=== PATIENT | female | born 1995 | race Caucasian/White ===

== ENCOUNTER 2017-10-22 14:28 | Emergency (ER) | payer OTHER ==
[2017-10-22] MEDS ORDERED: Pepcid 20 MG VIAL IV ONE ×2 (15:00→15:12)
[2017-10-22] MEDS ORDERED: BENADRYL 50 MG/ML IV ONE (15:00)
[2017-10-22] MEDS ORDERED: Hydromorphone 1 mg/ml Ampule IV ONE (15:00)
[2017-10-22] MEDS ORDERED: Lactated Ringers 1,000 ML IV ONE ×2 (15:00→15:13)
--- NOTE | 2017-10-22 15:10 | ERPHSYRPT ---
- History of Present Illness Time Seen by Provider: 10/22/17 14:53 Historian: patient Patient Subjective Stated Complaint: upper epigastric pain since 1030 today. vomited times two today Triage Nursing Assessment: ambulated to room per self. holding mid abd. skin w /d, color normal, resp easy. tearful at times. abd soft, tender. 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 She has epigastric abd pain, severe, sharp, since 10:30 AM today. She ate [employer] pizza at 8:30AM. Nausea without vomiting. No fever. Sexually active. Normal LMP. No vaginal discharge or bleeding. No hx of this pain in past. No prior abdominal surgeries. Timing/Duration: today Abdominal Pain Onset Location: epigastric Severity of Pain-Max: severe Severity of Pain-Current: severe Allergies/Adverse Reactions: No Known Drug Allergies Allergy (Unverified 10/22/17 15:03) Hx Tetanus, Diphtheria Vaccination/Date Given: No Hx Influenza Vaccination/Date Given: Yes Hx Pneumococcal Vaccination/Date Given: No - Review of Systems Constitutional: Malaise, No Fever, No Chills Eyes: No Symptoms Ears, Nose, & Throat: No Symptoms Respiratory: No Cough Cardiac: No Chest Pain Abdominal/Gastrointestinal: Abdominal Pain, Nausea, No Vomiting, No Diarrhea Genitourinary Symptoms: No Dysuria, No Vaginal Bleeding, No Vaginal Discharge Musculoskeletal: No Back Pain Skin: No Rash All Other Systems: Reviewed and Negative - Past Medical History Pertinent Past Medical History: No - Past Surgical History Past Surgical History: No - Social History Smoking Status: Current every day smoker How long have you smoked: 5 Exposure to second hand smoke: Yes Drug Use: marijuana Patient Lives Alone: No - Female History Hx Now: No - Nursing Vital Signs Nursing Vital Signs: Initial Vital Signs Temperature 97.4 F 10/22/17 14:35 Pulse Rate 70 10/22/17 14:35 Respiratory Rate 18 10/22/17 14:35 Blood Pressure 117/74 10/22/17 14:35 O2 Sat by Pulse Oximetry 100 10/22/17 14:35 Pain Scale Pain Intensity 0 - Physical Exam General Appearance: alert, obese, other (tearful) Eye Exam: PERRL/EOMI, No scleral icterus Ears, Nose, Throat Exam: normal ENT inspection, moist mucous membranes Neck Exam: normal inspection, non-tender, supple Respiratory Exam: normal breath sounds, lungs clear Cardiovascular Exam: regular rate/rhythm Gastrointestinal/Abdomen Exam: soft, tenderness (RUQ with guarding, + ybarra's sign, mild epigastric tenderness, no mass) Extremity Exam: normal inspection, normal range of motion Neurologic Exam: alert, oriented x 3, cooperative, sensation nml, No motor deficits Skin Exam: warm, dry, No rash SpO2 Interpretation: normal SpO2: 100 Oxygen Delivery: Room Air - Course Nursing assessment & vital signs reviewed: Yes - Radiology Exams cxr X-ray Interpretation: Interpreted by me (fluid in fissure, RML pneumonia) - CT Exams abd/pelvis CT Interpretation: Tele-radiologist Report (small to moderate right pleural effusion, 10 mm right lung nodule, single stone in gallbladder.) Ordered Tests: Active Orders 24 hr Category Date Time Status Clean Catch Urine Specimen STAT Care 10/22/17 15:00 Active IV Insertion STAT Care 10/22/17 15:00 Active NPO (ED) STAT Care 10/22/17 15:00 Active ABDOMEN AND PELVIS W CONTRAST [CT] Stat Exams 10/22/17 15:53 Taken CHEST 2 VIEWS (PA AND LAT) Stat Exams 10/22/17 17:42 Taken CBC W DIFF Stat Lab 10/22/17 15:15 Completed CMP Stat Lab 10/22/17 15:15 Completed CULTURE,URINE Stat Lab 10/22/17 15:15 Received HCG QUALITATIVE,SERUM Stat Lab 10/22/17 15:15 Completed LIPASE Stat Lab 10/22/17 15:15 Completed Lactic Acid Stat Lab 10/22/17 15:00 Completed UA W/ MICROSCOPIC Stat Lab 10/22/17 15:15 Completed Medication Summary Discontinued Medications Generic Name Dose Route Start Last Admin Trade Name Freq PRN Reason Stop Dose Admin Hydrocodone Bitart/Acetaminophen 2 tab 10/22/17 17:52 [place] 5/325 Mg PO 10/22/17 17:53 SENT HOME W/ PATIENT ONE Diphenhydramine HCl 25 mg 10/22/17 15:00 10/22/17 15:15 Benadryl 50 Mg/Ml IV 10/22/17 15:01 25 mg STAT ONE Administration Diphenhydramine HCl Confirm 10/22/17 15:12 Benadryl 50 Mg/Ml Administered 10/22/17 15:13 Dose 50 mg .ROUTE .STK-MED ONE Famotidine 20 mg 10/22/17 15:00 10/22/17 15:17 Pepcid 20 Mg Vial IV 10/22/17 15:01 20 mg STAT ONE Administration Famotidine Confirm 10/22/17 15:12 Pepcid 20 Mg Vial Administered 10/22/17 15:13 Dose 20 mg IV .STK-MED ONE Hydromorphone HCl 1 mg 10/22/17 15:00 10/22/17 15:16 Hydromorphone 1 Mg/Ml Ampule IV 10/22/17 15:01 1 mg STAT ONE Administration Hydromorphone HCl Confirm 10/22/17 15:15 Dilaudid 2 Mg Injection Administered 10/22/17 15:16 Dose 2 mg .ROUTE .STK-MED ONE Lactated Ringer's 1,000 mls @ 999 mls/hr 10/22/17 15:00 10/22/17 15:17 Lactated Ringers IV 10/22/17 16:00 999 mls/hr .Q1H1M ONE Administration Lactated Ringer's Confirm 10/22/17 15:13 Lactated Ringers Administered 10/22/17 15:14 Dose 1,000 mls @ ud IV .STK-MED ONE Ampicillin Sodium/Sulbactam Sodium 3 gm in 100 mls @ 200 mls/hr 10/22/17 17: 46 Unasyn 3gm / Nacl 100ml IV 10/22/17 18:15 STAT STA Lab/Rad Data: Laboratory Result Diagrams 10/22/17 15:15 10/22/17 15:15 Laboratory Results 10/22/17 10/22/17 10/22/17 Range/Units 15:15 15:15 15:15 WBC 10.8 H (4.0-10.5) K/mm3 RBC 4.79 (4.1-5.4) M/mm3 Hgb 14.2 (12.0-16.0) gm/dl Hct 43.0 (35-47) % MCV 89.8 (78-100) fl MCH 29.6 (26-32) pg MCHC 33.0 (32-36) g/dl RDW 13.4 (11.5-14.0) % Plt Count 276 (150-450) K/mm3 MPV 11.1 H (6-9.5) fl Gran % 75.8 H (36.0-66.0) % Lymphocytes % 15.4 L (24.0-44.0) % Monocytes % 5.7 (0.0-12.0) % Eosinophils % 2.6 (0.00-5.0) % Basophils % 0.5 (0.0-0.4) % Basophils # 0.05 (0-0.4) Sodium 141 (137-145) mmol/L Potassium 4.7 (3.5-5.1) mmol/L Chloride 106 (98-107) mEq/L Carbon Dioxide 26 (22-30) mmol/L Anion Gap 14.1 (5-15) MEQ/L BUN 11 (7-17) mg/dl Creatinine 0.65 (0.52-1.04) mg/dl Estimated GFR > 60 ML/MIN Glucose 99 (74-106) mg/dL Lactic Acid (0.4-2.0) Calcium 9.3 (8.4-10.2) mg/dL Total Bilirubin < 0.10 L (0.2-1.3) mg/d? AST 15 (14-36) U/L ALT 16 (0-35) U/L Alkaline Phosphatase 60 (38-126) U/L Serum Total Protein 7.0 (6.3-8.2) mg/dl Albumin 3.8 (3.5-5.0) g/dl Lipase 57 (23-300) U/L Serum , Qual NEGATIVE (Negative) Ur Collection Type Urine Color (YELLOW) Urine Appearance (CLEAR) Urine pH (5-6) Ur Specific [place] (1.005-1.025) Urine Protein (Negative) Urine Ketones (NEGATIVE) Urine Blood (0-5) Maxi/ul Urine Nitrite (NEGATIVE) Urine Bilirubin (NEGATIVE) Urine Urobilinogen (0-1) mg/dL Ur Leukocyte Esterase (NEGATIVE) Urine Microscopic WBC (0-5) /HPF Ur Epithelial Cells (FEW) /HPF Urine Bacteria (NEGATIVE) /HPF Urine Culture Reflexed (NO) Urine Glucose (NEGATIVE) mg/dL Specimen Received 10/22/17 10/22/17 Range/Units 15:15 15:00 WBC (4.0-10.5) K/mm3 RBC (4.1-5.4) M/mm3 Hgb (12.0-16.0) gm/dl Hct (35-47) % MCV (78-100) fl MCH (26-32) pg MCHC (32-36) g/dl RDW (11.5-14.0) % Plt Count (150-450) K/mm3 MPV (6-9.5) fl Gran % (36.0-66.0) % Lymphocytes % (24.0-44.0) % Monocytes % (0.0-12.0) % Eosinophils % (0.00-5.0) % Basophils % (0.0-0.4) % Basophils # (0-0.4) Sodium (137-145) mmol/L Potassium (3.5-5.1) mmol/L Chloride (98-107) mEq/L Carbon Dioxide (22-30) mmol/L Anion Gap (5-15) MEQ/L BUN (7-17) mg/dl Creatinine (0.52-1.04) mg/dl Estimated GFR ML/MIN Glucose (74-106) mg/dL Lactic Acid 1.5 (0.4-2.0) Calcium (8.4-10.2) mg/dL Total Bilirubin (0.2-1.3) mg/d? AST (14-36) U/L ALT (0-35) U/L Alkaline Phosphatase (38-126) U/L Serum Total Protein (6.3-8.2) mg/dl Albumin (3.5-5.0) g/dl Lipase (23-300) U/L Serum , Qual (Negative) Ur Collection Type VOID Urine Color YELLOW (YELLOW) Urine Appearance SLIGHTLY HAZY (CLEAR) Urine pH 5.0 (5-6) Ur Specific [place] 1.010 (1.005-1.025) Urine Protein NEGATIVE (Negative) Urine Ketones NEGATIVE (NEGATIVE) Urine Blood 5-10 (0-5) Maxi/ul Urine Nitrite NEGATIVE (NEGATIVE) Urine Bilirubin NEGATIVE (NEGATIVE) Urine Urobilinogen NORMAL (0-1) mg/dL Ur Leukocyte Esterase 2+ (NEGATIVE) Urine Microscopic WBC 10-15 (0-5) /HPF Ur Epithelial Cells FEW (FEW) /HPF Urine Bacteria MODERATE (NEGATIVE) /HPF Urine Culture Reflexed YES (NO) Urine Glucose NEGATIVE (NEGATIVE) mg/dL Specimen Received 10/22/17 1510 - Progress Progress Note: 10/22/17 15:10 CT abd ordered for abd pain as no sonography available. 10/22/17 17:46 Pt feels better after meds. polishing machine tender in RUQ. LAbs reassuring. ?etiology of pleural effusion. Will treat with unasyn. She prefers to go home. May be able to see surgeon david. Advised effusion and gallstone need to be evaluate. Physician referral list also given. Counseled pt/family regarding: lab results, diagnosis, need for follow-up, rad results - Departure Time of Disposition: 18:23 Departure Disposition: Home Clinical Impression: Biliary colic, Gallstone, Pleural effusion, right, RML pneumonia Condition: Fair Critical Care Time: No Referrals: DOCTOR,NO FAMILY [NON-STAFF PHY W/O PRIVILEGES] - CAM CHESTER [COURTESY STAFF] - Instructions: Pleural Effusion (DC), Gallstones (DC) Additional Instructions: Rx augmentin. Rx norco- no driving. Rx zofran. [place] diet. No driving tonite and stay with family. Call Dr Chester office in am to get appt tomorrow. Follow up this week with a family doctor. Rx zithromax. Prescriptions: Hydrocodone Bit/Acetaminophen [[place] 5-325 Tablet] 1 each PO Q6H PRN PRN #10 tablet MDD 4 PRN Reason: Pain Ondansetron ODT 4 MG [Zofran Odt 4 mg] 1 tab PO Q6H PRN PRN #10 tab.rapdis PRN Reason: Nausea/Vomiting Amox Tr/Potass Clav. 875 mg [Augmentin 875-125 Tablet] 875 mg PO BID #14 tablet Azithromycin 250 mg [Zithromax 250 MG TABLET] 1 tab PO DAILY #4 tablet
[2017-10-22] MEDS ORDERED: BENADRYL 50 MG/ML ONE (15:12)
[2017-10-22] MEDS ORDERED: DILAUDID 2 MG INJECTION ONE (15:15)
[2017-10-22 15:21] LABS: BASOPHIL % 0.5 % (0.0-0.4); Basophil (Absolute #) 0.05 (0-0.4); Eosinophil % 2.6 % (0.00-5.0); Eosinophil (Absolute #) 0.28 (0-0.5); Granulocytes % 75.8 % (36.0-66.0); Hemoglobin 14.2 gm/dl (12.0-16.0); Lymphocyte (Absolute #) 1.67 (1.0-4.6); Lymphocytes % 15.4 % (24.0-44.0); Mean Cell Volume 89.8 fl (78-100); Mean Corpuscular Hemoglobin 29.6 pg (26-32); Mean Platelet Volume 11.1 fl (6-9.5); Monocyte (Absolute #) 0.62 (0.0-1.3); Monocytes % 5.7 % (0.0-12.0); Platelet Count 276 K/mm3 (150-450); Red Blood Count 4.79 M/mm3 (4.1-5.4); Red Cell Distribution Width 13.4 % (11.5-14.0); White Blood Count 10.8 K/mm3 (4.0-10.5)
[2017-10-22 15:23] LABS: Appearance SLIGHTLY HAZY (CLEAR); Bilirubin NEGATIVE (NEGATIVE); Glucose NEGATIVE (NEGATIVE); Ketones NEGATIVE (NEGATIVE); Leukocyte Esterase 2+ (NEGATIVE); Nitrite NEGATIVE (NEGATIVE); Protein,Urine Dip NEGATIVE (Negative); Urobilinogen NORMAL mg/dL (0-1)
[2017-10-22 15:45] LABS: Epithelial Cells FEW /HPF (FEW)
[2017-10-22 15:46] LABS: Bacteria MODERATE /HPF (NEGATIVE)
[2017-10-22 15:55] LABS: ALBUMIN 3.8 g/dl (3.5-5.0); ALKALINE PHOSPHATASE 60 U/L (38-126); ANION GAP 14.1 MEQ/L (5-15); BILIRUBIN,TOTAL < 0.10 mg/d? (0.2-1.3); BLOOD UREA NITROGEN 11 mg/dl (7-17); CHLORIDE 106 mEq/L (98-107); Calcium 9.3 mg/dL (8.4-10.2); Carbon Dioxide 26 mmol/L (22-30); Creatinine 1 0.65 mg/dl (0.52-1.04); Glucose 99 mg/dL (74-106); LIPASE 57 U/L (23-300); Potassium 4.7 mmol/L (3.5-5.1); SGOT/AST 15 U/L (14-36); SGPT/ALT 16 U/L (0-35); SODIUM 141 mmol/L (137-145)
[2017-10-22] MEDS ORDERED: Unasyn 3GM / NaCl 100ML 3 GM/100 ML IVPB IV STA (17:46)
[2017-10-22] MEDS ORDERED: NORCO 5/325 MG PO ONE (17:52)
[2017-10-22] MEDS ORDERED: Zithromax 250 MG TABLET PO ONE (18:24)
[2017-10-22] MEDS ORDERED: Unasyn 3GM / NaCl 100ML 3 GM/100 ML IVPB ONE (18:33)
[2017-10-22] MEDS ORDERED: Zithromax 250 MG TABLET ONE (18:35)
[2017-10-22] MEDS ORDERED: NORCO 5/325 MG ONE (19:16)
[2017-10-22 19:24] VITALS: BP 114/72; PULSE 62; O2SAT 96
--- NOTE | 2017-10-22 20:47 | XRAY ---
Indication: Abdominal pain. Nausea and vomiting. Multiple contiguous axial images obtained through the abdomen and pelvis using 80 cc Isovue-370 contrast only. Comparison: None Lung bases demonstrate mild/moderate right base effusion with compressive atelectasis. Lesser left lung base dependent atelectasis. Heart is not enlarged. Noncontrasted stomach and bowel loops appear nonobstructed. Normal appendix. No free fluid/air. 2.5 cm gallstone. Remaining liver, pancreas, spleen, adrenal glands, kidneys, ureters, bladder, uterus, and aorta appear normal in CT appearance and attenuation. No pathologic retroperitoneal lymphadenopathy. Osseous structures intact. Impression: 1. 2.5 cm gallstone. Ultrasound may yield further information if clinically warranted. 2. Mild/moderate right lung base effusion with atelectasis. Comment: Preliminary interpretation was made by C. No discrepancy. CTDI 23.68
--- NOTE | 2017-10-22 20:49 | XRAY ---
Indication: Pleural effusion. Comparison: None PA/lateral chest demonstrates bibasilar infiltrates/atelectasis right greater than left with small right effusion. Heart is not enlarged. Bony thorax intact.
== END 2017-10-22 19:36 | disposition home or self-care (01) ==
LOC: ED 14:28
DX: K80.70 Calculus of gallbladder and bile duct without cholecystitis without obstruction (principal); J90 Pleural effusion, not elsewhere classified; J18.9 Pneumonia, unspecified organism
CPT/HCPCS: 36000; 36415; 71046; 74177; 80053; 81000; 83605; 83690; 84703; 85025; 87086; 96360; 96365; 96374; 96375; 99284; J0295; J1170; J1200; A9270-GY

== ENCOUNTER 2020-03-16 20:09 | Emergency (ER) | payer OTHER ==
[2020-03-16] MEDS ORDERED: XYLOCAINE 1% HCL 20 ML MDV IJ ONE (20:10)
--- NOTE | 2020-03-16 20:33 | ERPHSYRPT ---
- History of Present Illness Time Seen by Provider: 03/16/20 20:33 Source: patient Exam Limitations: no limitations Physician History: Is a 24-year-old white female who presents with sore throat since yesterday afternoon. Her symptoms worsen. She has white spots on the back of her throat. Patient has no known exposure to anyone with positive strep throat. She has no shortness of breath. She has no cough symptoms. Timing/Duration: yesterday Cough Quality/Degree: no cough Possible Cause: no prior episodes Associated Symptoms: sore throat Allergies/Adverse Reactions: No Known Drug Allergies Allergy (Unverified 03/16/20 20:17) Travel Risk - International Travel Have you traveled outside of the country in past 3 weeks: No - Coronavirus Screening Are you exhibiting any of the following symptoms?: No Close contact with a COVID-19 positive Pt in past 14-21 Days: No - Review of Systems Constitutional: No Symptoms Eyes: No Symptoms Ears, Nose, & Throat: Throat Pain Respiratory: No Symptoms Cardiac: No Symptoms Abdominal/Gastrointestinal: No Symptoms Genitourinary Symptoms: No Symptoms Musculoskeletal: No Symptoms Skin: No Symptoms Neurological: No Symptoms Psychological: No Symptoms Endocrine: No Symptoms Hematologic/Lymphatic: No Symptoms Immunological/Allergic: No Symptoms All Other Systems: Reviewed and Negative - Past Medical History Pertinent Past Medical History: No Neurological History: No Pertinent History ENT History: No Pertinent History Cardiac History: No Pertinent History Respiratory History: No Pertinent History Endocrine Medical History: No Pertinent History Musculoskeletal History: No Pertinent History GI Medical History: No Pertinent History History: No Pertinent History Psycho-Social History: No Pertinent History Female Reproductive Disorders: No Pertinent History - Past Surgical History Past Surgical History: No Neuro Surgical History: No Pertinent History Respiratory: No Pertinent History Gastrointestinal: No Pertinent History Genitourinary: No Pertinent History Musculoskeletal: No Pertinent History Female Surgical History: No Pertinent History - Physical Exam General Appearance: no apparent distress, alert, anxiety Eye Exam: PERRL/EOMI, eyes nml inspection Ears, Nose, Throat Exam: pharyngeal erythema, tonsillar exudate Neck Exam: non-tender, supple, full range of motion, lymphadenopathy Respiratory Exam: normal breath sounds, lungs clear, No chest tenderness, No respiratory distress, No stridor Cardiovascular Exam: regular rate/rhythm, normal heart sounds, normal peripheral pulses Gastrointestinal/Abdomen Exam: soft, normal bowel sounds, No tenderness Pelvic Exam: not done Rectal Exam: not done Back Exam: normal inspection, normal range of motion, No CVA tenderness, No vertebral tenderness Extremity Exam: normal inspection, normal range of motion, pelvis stable Neurologic Exam: alert, oriented x 3, cooperative, reactor technician II-XII nml as tested, normal mood/affect, nml cerebellar function, nml station & gait, sensation nml Skin Exam: normal color, warm, dry Lymphatic Exam: adenopathy (Upper cervical) SpO2 Interpretation: normal O2 Delivery: Room Air - Course Nursing assessment & vital signs reviewed: Yes - Progress Progress: re-examined Air Movement: good Blood Culture(s) Obtained: No Antibiotics given: Yes Counseled pt/family regarding: diagnosis, need for follow-up - Departure Departure Disposition: Home Clinical Impression: Pharyngitis Condition: Stable Critical Care Time: No Referrals: DOCTOR,NO FAMILY [Primary Care Provider] - Additional Instructions: Drink plenty of fluids. Follow-up with your primary care physician for persistent symptoms. Take medication as prescribed. Prescriptions: Prednisone 10 mg [Deltasone 10 mg] 10 mg PO TID #12 tablet Hydrocodone Bit/Acetaminophen [Hydrocodone-Acetaminophen Soln] 10 ml PO Q6H #120 ml Azithromycin 250 mg [Zithromax 250 MG TABLET] 250 mg PO ZPACK #6 tablet
[2020-03-16] MEDS ORDERED: HYDROCODONE-ACETAMIN 2.5-108/5 ML SOLUTION ONE (20:42)
[2020-03-16] MEDS ORDERED: Rocephin 1000 MG INJ ONE (20:43)
[2020-03-16] MEDS ORDERED: solu-MEDROL 125 MG ONE (20:43)
[2020-03-16] MEDS: solu-MEDROL 125 MG IM ONE (20:45)
[2020-03-16] MEDS: Rocephin 1000 MG INJ IM ONE (20:46)
[2020-03-16] MEDS: HYDROCODONE-ACETAMIN 2.5-108/5 ML SOLUTION PO STA (20:46)
[2020-03-16 21:03] VITALS: BP 115/82; PULSE 127; O2SAT 95
== END 2020-03-16 21:06 | disposition home or self-care (01) ==
LOC: ED 20:09 → EDBD 20:09 → MERGE 20:09 → ED 21:06
DX: J02.9 Acute pharyngitis, unspecified (principal)
CPT/HCPCS: 96372; 99284; J0696; J2930; A9270-GY